=== PATIENT | male | born 1990 | race Caucasian/White ===

== ENCOUNTER 2017-04-18 10:32 | Emergency (ER) | payer OTHER ==
[~2017-04-18] VITALS: Ht 175.3 cm; Wt 80.0 kg
[2017-04-18 10:51] VITALS: BP 160/106; PULSE 110; RESP 17; TEMP 98.4; O2SAT 98
[2017-04-18 11:20] LABS: AUTOMATED NEUTROPHIL # 6.4 TH/MM3 (1.8-7.7); BASOPHIL # 0.1 TH/MM3 (0-0.2); BASOPHIL % 0.7 % (0.0-2.0); EOSINOPHIL # 0.2 TH/MM3 (0-0.4); EOSINOPHIL % 1.7 % (0.0-4.0); HEMATOCRIT 46.1 % (39.0-51.0); HEMO FLAGS DIFF FINAL; LYMPH % 26.7 % (9.0-44.0); LYMPHOCYTE # 2.7 TH/MM3 (1.0-4.8); MEAN CELL VOLUME 93.2 FL (80.0-100.0); MEAN CORPUSCULAR HEMOGLOBIN 31.3 PG (27.0-34.0); MEAN CORPUSCULAR HGB CONC 33.6 % (32.0-36.0); MONO % 8.1 % (0.0-8.0); NEUT % 62.8 % (16.0-70.0); PLATELET COUNT 246 TH/MM3 (150-450); RED BLOOD COUNT 4.95 MIL/MM3 (4.50-5.90); RED CELL DISTRIBUTION WIDTH 12.6 % (11.6-17.2); WHITE BLOOD COUNT 10.2 TH/MM3 (4.0-11.0)
[2017-04-18 11:36] LABS: ANION GAP 8 MEQ/L (5-15); AST (GOT) 19 U/L (15-37); BICARBONATE 22.3 MEQ/L (21.0-32.0); BLOOD UREA NITROGEN 20 MG/DL (7-18); CHLORIDE 110 MEQ/L (98-107); GLOMERULAR FILTRATION RATE 85 ML/MIN (>89); POTASSIUM 3.6 MEQ/L (3.5-5.1); SODIUM (NA) 140 MEQ/L (136-145)
[2017-04-18 11:37] LABS: ALT (GPT) 22 U/L (12-78)
[2017-04-18 11:39] LABS: ALKALINE PHOSPHATASE 68 U/L (45-117); TOTAL BILIRUBIN ADULT 1.5 MG/DL (0.2-1.0)
[2017-04-18 11:42] LABS: ALCOHOL LESS THAN 3 MG/DL (0-5)
[2017-04-18 12:53] VITALS: BP 154/96; PULSE 99; RESP 16; O2SAT 99
[2017-04-18 13:17] VITALS: BP 148/97; PULSE 86; RESP 18; O2SAT 99
--- NOTE | 2017-04-18 13:19 | PD ---
HPI Chief Complaint: Psychiatric Symptoms Time Seen by Provider: 11:24 Travel History International Travel<30 days: No Contact w/Intl Traveler<30days: No Traveled to known affect area: No History of Present Illness HPI 27-year-old male presents after he states he got in a fight with his girlfriend so to get her attention he chewed up Motrin and acted like he was given a take the whole bottle and then spitted out. He states that he didn't end up ingesting any of it. He states that he was just wanting to get her attention. He presents under a Burnette act for suicidal ideation. He states that he's been working on trying to get in to counseling but it did not time out right. He denies other complaints actively. History is limited. PFSH Past Medical History ADHD: Yes Bipolar Disorder: Yes Tetanus Vaccination: Unknown Influenza Vaccination: No Past Surgical History Surgical History: No Previous Surgery Social History Alcohol Use: Yes (SOCIALLY) Tobacco Use: Yes (1.5 PPD) Substance Use: Yes (MARIJUANA AND METH 04/17/17) Allergies-Medications (Allergen,Severity, Reaction): Coded Allergies: No Known Allergies (Unverified , 04/18/17) Reported Meds & Prescriptions Reported Meds & Active Scripts Active No Active Prescriptions or Reported Medications Review of Systems ROS Limitations: Poor Historian Except as stated in HPI: all other systems reviewed are Neg Physical Exam Exam Limitations: Poor Historian Narrative GENERAL: Well-nourished, well-developed patient. Well-appearing SKIN: Warm and dry. HEAD: Normocephalic and atraumatic. EYES: No injection or drainage. ENT: No nasal drainage noted. NECK: Supple, trachea midline. CARDIOVASCULAR: Regular rate and rhythm RESPIRATORY: No increased effort. No accessory muscle use. GASTROINTESTINAL: Abdomen soft, non-tender, nondistended. EXTREMITIES: No edema. NEUROLOGICAL: Awake and alert. Motor and sensory grossly within normal limits. Normal speech. Data Data Last Documented VS Vital Signs Date Time Temp Pulse Resp B/P (MAP) Pulse Ox O2 Delivery O2 Flow Rate FiO2 04/18/17 12:53 99 16 154/96 (115) 99 Room Air 04/18/17 10:51 98.4 Orders Orders Complete Blood Count With Diff (04/18/17 10:55) Comprehensive Metabolic Panel (04/18/17 10:55) Psych Screen (04/18/17 10:55) Drug Screen, Random Urine (04/18/17 10:55) Alcohol (Ethanol) (04/18/17 10:55) Labs Laboratory Tests Test 04/18/17 11:00 White Blood Count 10.2 TH/MM3 Red Blood Count 4.95 MIL/MM3 Hemoglobin 15.5 GM/DL Hematocrit 46.1 % Mean Corpuscular Volume 93.2 FL Mean Corpuscular Hemoglobin 31.3 PG Mean Corpuscular Hemoglobin Concent 33.6 % Red Cell Distribution Width 12.6 % Platelet Count 246 TH/MM3 Mean Platelet Volume 9.9 FL Neutrophils (%) (Auto) 62.8 % Lymphocytes (%) (Auto) 26.7 % Monocytes (%) (Auto) 8.1 % Eosinophils (%) (Auto) 1.7 % Basophils (%) (Auto) 0.7 % Neutrophils # (Auto) 6.4 TH/MM3 Lymphocytes # (Auto) 2.7 TH/MM3 Monocytes # (Auto) 0.8 TH/MM3 Eosinophils # (Auto) 0.2 TH/MM3 Basophils # (Auto) 0.1 TH/MM3 CBC Comment DIFF FINAL Differential Comment Blood Urea Nitrogen 20 MG/DL Creatinine 1.04 MG/DL Random Glucose 89 MG/DL Total Protein 7.5 GM/DL Albumin 4.3 GM/DL Calcium Level 9.0 MG/DL Alkaline Phosphatase 68 U/L Aspartate Amino Transf (AST/SGOT) 19 U/L Alanine Aminotransferase (ALT/SGPT) 22 U/L Total Bilirubin 1.5 MG/DL Sodium Level 140 MEQ/L Potassium Level 3.6 MEQ/L Chloride Level 110 MEQ/L Carbon Dioxide Level 22.3 MEQ/L Anion Gap 8 MEQ/L Estimat Glomerular Filtration Rate 85 ML/MIN Urine Opiates Screen NEG Urine Barbiturates Screen NEG Urine Amphetamines Screen POS Urine Benzodiazepines Screen NEG Urine Cocaine Screen NEG Urine Cannabinoids Screen POS Ethyl Alcohol Level LESS THAN 3 MG/DL MDM Medical Decision Making Medical Screen Exam Complete: Yes Emergency Medical Condition: Yes Interpretation(s) CBC & BMP Diagram 04/18/17 11:00 Total Protein 7.5, Albumin 4.3, Calcium Level 9.0, Alkaline Phosphatase 68, Aspartate Amino Transf (AST/SGOT) 19, Alanine Aminotransferase (ALT/SGPT) 22, Total Bilirubin 1.5 H Differential Diagnosis Suicidal ideation, gastritis, ingestion Narrative Course Will check lab work and reevaluate Basic labs show no acute findings, no new complaints or GI upset here, medically cleared Diagnosis Primary Impression: Suicidal behavior Scripts No Active Prescriptions or Reported Meds Shayla Aguiar MD Apr 18, 2017 13:19
[2017-04-18 17:59] VITALS: BP 142/90; PULSE 68; RESP 16; O2SAT 100
[2017-04-18 22:17] VITALS: BP 127/88; PULSE 64; RESP 18; O2SAT 98
[2017-04-19 02:50] VITALS: BP 108/61; PULSE 50; O2SAT 98
[2017-04-19 06:28] VITALS: BP 107/74; PULSE 57; RESP 16; O2SAT 99
--- NOTE | 2017-04-19 10:05 | PD ---
History of Present Illness Chief Complaint: Psychiatric Symptoms Time Seen by Provider: 09:45 Travel History International Travel<30 Days: No Contact w/Intl Traveler<30days: No Known affected area: No Legal Status Legal Status: Burnette Act Burnette Act Signed By: Malika Burnette Act Comment: OFFICER NARENDRA BAIG # [id number] History of Present Illness: History of Present Illness HPI 27-year-old male with no psychiatric history who presents under a BA initiated by HUMERA . The report alleges that the patient " tried cutting his wrist with a pocket knife then threw the knife out the window, that he tried to jump out of a car and then tried to swallow some pills but threw them up". This in context of a fight with his girlfriend and in presence of the girlfriend. he reports that hew as not trying to kill himself rather " I was trying to get her attention. I wanted her to come up to me and ask me what was happening and at least give me a hug". Patient also under the influence of amphetamines Patient was monitored in secure environment and he did not present any behavioral concerns and no suicidality. EMR is reviewed including labs. Positive toxicology for amphetamines and cannabinoids. No previous contact with [facility] psychiatry. Patient is seen , He is alert and oriented, calm and engaging. He is maintaining basic hygiene. Speech is clear, logical, normal rate and tone., there si no psychosis, no santiago and no objective clinical symptoms of depression. he denies any. He denies any suicidality and reiterates that " I was trying to get her attention . I was never suicidal". I want to get help because I have a problem with anger." Remaining evaluation is negative. PFSH Past Medical History ADHD: Yes Bipolar Disorder: Yes Tetanus Vaccination: Unknown Influenza Vaccination: No Past Surgical History Surgical History: No Previous Surgery Psychiatric History Psychiatric History Hx Psychiatric Treatment: DENIES No previous suicde attempts History of Inpatient Treatment: No Guns or firearms in home: No Social History Single, never , unemployed. has worked in [employer]. Lives w girlfriend x 8 months. Hx Alcohol Use: Yes (SOCIALLY) Hx Tobacco Use: Yes (1.5 PPD) Hx Substance Use: Yes Substance Use Type: Marijuana, Amphetamines-Stimulants Other Substances Used: PT. WAS GOING [facility] BUT CAME TO [facility] Hx of Substance Use Treatment: No Family Psychiatric History Negative Allergies-Medications (Allergen,Severity, Reaction): Coded Allergies: No Known Allergies (Unverified , 04/18/17) Reported Meds & Prescriptions Reported Meds & Active Scripts Active No Active Prescriptions or Reported Medications Review of Systems Except as stated in HPI: all other systems reviewed are Neg Exam Alert: Yes Butler: Person (ox4) Mood: Calm Affect: Appropriate Speech: Clear, Logical Eye Contact: Normal Memory Intact: Comment (No timpaired) Hallucinations: Other (negative) Delusions: No Suicidal: Ideation (deneis any) Homicidal: Ideation (deneis any) Insight/Judgement Faior. Not impaired. MDM Medical Decision Making Medical Record Reviewed: Yes Assessment/Plan 27-year-old male with no psychiatric history who presents under a BA initiated by HUMERA . The report alleges that the patient " tried cutting his wrist with a pocket knife then threw the knife out the window, that he tried to jump out of a car and then tried to swallow some pills but threw them up". This in context of a fight with his girlfriend and in presence of the girlfriend as well as while under the influence of amphetamines as well as marijuana. Patient at this time presents no psychosis, no suicidal or homicidal ideation, intent or plan . He is provided psychoeducation. He plans on seeking outpatient care at [facility]. He has been in communication with his girlfriend who is going to pick him up. \\Lift BA as he does not meet criteria. Orders Orders Complete Blood Count With Diff (04/18/17 10:55) Comprehensive Metabolic Panel (04/18/17 10:55) Psych Screen (04/18/17 10:55) Drug Screen, Random Urine (04/18/17 10:55) Alcohol (Ethanol) (04/18/17 10:55) Diet Regular Basic (04/18/17 Dinner) Diet Regular Basic (04/19/17 Breakfast) Results Vital Signs Date Time Temp Pulse Resp B/P (MAP) Pulse Ox O2 Delivery O2 Flow Rate FiO2 04/19/17 06:28 57 16 107/74 (85) 99 04/19/17 02:50 50 108/61 (77) 98 04/18/17 22:17 64 18 127/88 (101) 98 Room Air 04/18/17 17:59 68 16 142/90 (107) 100 Room Air 04/18/17 13:17 86 18 148/97 (114) 99 Room Air 04/18/17 12:53 99 16 154/96 (115) 99 Room Air 04/18/17 10:51 98.4 110 17 160/106 (124) 98 Laboratory Tests Test 04/18/17 11:00 White Blood Count 10.2 Red Blood Count 4.95 Hemoglobin 15.5 Hematocrit 46.1 Mean Corpuscular Volume 93.2 Mean Corpuscular Hemoglobin 31.3 Mean Corpuscular Hemoglobin Concent 33.6 Red Cell Distribution Width 12.6 Platelet Count 246 Mean Platelet Volume 9.9 Neutrophils (%) (Auto) 62.8 Lymphocytes (%) (Auto) 26.7 Monocytes (%) (Auto) 8.1 Eosinophils (%) (Auto) 1.7 Basophils (%) (Auto) 0.7 Neutrophils # (Auto) 6.4 Lymphocytes # (Auto) 2.7 Monocytes # (Auto) 0.8 Eosinophils # (Auto) 0.2 Basophils # (Auto) 0.1 CBC Comment DIFF FINAL Differential Comment Blood Urea Nitrogen 20 Creatinine 1.04 Random Glucose 89 Total Protein 7.5 Albumin 4.3 Calcium Level 9.0 Alkaline Phosphatase 68 Aspartate Amino Transf (AST/SGOT) 19 Alanine Aminotransferase (ALT/SGPT) 22 Total Bilirubin 1.5 Sodium Level 140 Potassium Level 3.6 Chloride Level 110 Carbon Dioxide Level 22.3 Anion Gap 8 Estimat Glomerular Filtration Rate 85 Urine Opiates Screen NEG Urine Barbiturates Screen NEG Urine Amphetamines Screen POS Urine Benzodiazepines Screen NEG Urine Cocaine Screen NEG Urine Cannabinoids Screen POS Ethyl Alcohol Level LESS THAN 3 Diagnosis Primary Impression: Substance induced mood disorder Additional Impression: Amphetamine abuse Psychiatrically Cleared: Yes Patient Instructions: General Instructions, Mood Disorders (ED), Medical Clearance for Psychiatric Care (ED) Additional Instructions: DISCHARGE HOME DIAGNOSIS SUBSTANCE INDUCED MOOD DISORDER FOLLOW-UP WITH PCP NEEDED RETURN TO ED FOR WORSENING PROBLEMS Prescriptions No Active Prescriptions or Reported Meds Disposition: 01 DISCHARGE HOME Condition: Stable Problem Qualifiers AlvaradoLydia Dawna Martin [facility] Apr 19, 2017 10:05
[2017-04-19 10:06] VITALS: BP 107/74
== END 2017-04-19 10:14 | disposition home or self-care (01) ==
LOC: NEPE 10:32 → NEPJ 04-19 10:14
DX: F15.14 Other stimulant abuse with stimulant-induced mood disorder (principal); F31.9 Bipolar disorder, unspecified; F90.9 Attention-deficit hyperactivity disorder, unspecified type; F17.200 Nicotine dependence, unspecified, uncomplicated
CPT/HCPCS: 80053; 80307; 85025; 99284